=== PATIENT | male | born 1950 | race Caucasian/White ===

== ENCOUNTER 2019-07-15 08:02 | Outpatient (CLI) | payer MEDICARE ==
--- NOTE | 2019-07-15 10:27 | MRI ---
EXAM: MRI lumbar spine without contrast HISTORY: Back and right leg pain COMPARISON: None TECHNIQUE: Multiple planar multisequence MR images were obtained of the lumbar spine without contrast . FINDINGS: The vertebral bodies and intervertebral discs demonstrate normal height and alignment without fractur e or subluxation. Disc desiccation from L3/4 through L5/S1 is seen. A cyst is seen in the left kidney. The other prevertebral and paraspinal soft tissues are unremarkabl e. No marrow signal abnormality is present. The conus medullaris terminates normally at L1. T12/L1: No significant posterior bulge or protrusion. No posterior facet arthrosis. No central jah l stenosis. No neural foraminal stenosis L1/2: No significant posterior bulge or protrusion. No posterior facet arthrosis. No central canal stenosis. No neural foraminal stenosis L2/3: Minimal generalized concentric disc bulge. Mild to moderate bilateral posterior facet arthrosi s. No central canal stenosis. No neural foraminal stenosis L3/4: A small generalized concentric disc bulge is seen. Mild bilateral posterior facet arthrosis. Mild central canal stenosis. Mild to moderate bilateral neural foraminal stenosis L4/5: A small generalized concentric disc bulge is seen. Severe bilateral posterior facet arthrosis. Moderate central canal stenosis. Moderate bilateral neural foraminal stenosis, left greater than right. L5/S1: A small generalized concentric disc bulge is seen. Severe bilateral posterior facet arthrosis . No central canal stenosis. Severe left and moderate right neural foraminal stenosis IMPRESSION: Degenerative changes of the lumbar spine as above.
== END 2019-07-15 08:03 | disposition home or self-care (01) ==
LOC: TBSIIMAG 08:02
PROVIDERS: ATTEND Orthopaedic Surgery
DX: M48.061 Spinal stenosis, lumbar region without neurogenic claudication (principal); M47.816 Spondylosis without myelopathy or radiculopathy, lumbar region
CPT/HCPCS: 72148

== ENCOUNTER 2020-04-13 10:14 | Outpatient (CLI) | payer MEDICARE ==
--- NOTE | 2020-04-13 11:18 | MRI ---
MRI Lumbar Spine Noncontrast: HISTORY: Lumbar radiculopathy. COMPARISON: 07/15/2019. FINDINGS: Again noted is a circumscribed increased T2-weighted signal intensity structure in the midportion lef t kidney statistically likely representing a cyst. A smaller subcentimeter increased T2-weighted signal intensity focus is also again seen in the inferior pole left kidney but less apparent on the c urrent study due to motion. Conus medullaris is normal in morphology and terminates at the L1-2 level. There is mild heterogeneity seen within the bone marrow with endplate degenerative changes seen in th e lower lumbar spine. L1-2: Mild disc osteophyte complex resulting in slight effacement of the ventral aspect of the thecal sac. Neural foramina are patent. L2-3: Mild broad-based disc osteophyte complex similar to prior study. Facet hypertrophic changes are again noted. Mild central canal narrowing is present. Neural foramina are patent. Findings are similar to prior exam. L3-4: Mild disc osteophyte complex with facet hypertrophic changes. There is prominence of the epidur al fat posteriorly. Constellation of these findings results in moderate central canal narrowing with findings similar to prior exam. Mild bilateral neural foraminal narrowing is present greater on the left. L4-5: Trace grade 1 anterolisthesis of L4 on L5 likely due to to severe facet hypertrophic changes at this level. Fluid signal intensity is seen in the right facet joint which is similar to prior exam. There is a mild disc osteophyte complex and ligamentous thickening at this level. Findings resu lt in moderate central canal narrowing with prominent narrowing of the left lateral recess. Moderate left and mild to moderate right-sided neural foraminal narrowing is present. These findings are similar to the prior exam L5-S1: Broad-based disc osteophyte complex and facet hypertrophic changes with severe facet hypertrop hic changes present. Fluid signal intensity is seen in the facet joints at this level. The central spinal canal is patent, but there is severe left-sided neural foraminal narrowing with moderate right -sided neural foraminal narrowing. IMPRESSION: Overall stable multilevel degenerative changes in the lumbar spine with varying degrees of neural for aminal narrowing greater in the lower lumbar spine where there is severe left-sided neural foraminal narrowing at L5-S1.
== END 2020-04-13 10:15 | disposition home or self-care (01) ==
LOC: TBSIIMAG 10:14
PROVIDERS: ATTEND Neurological Surgery
DX: M47.26 Other spondylosis with radiculopathy, lumbar region (principal); M48.062 Spinal stenosis, lumbar region with neurogenic claudication; M48.07 Spinal stenosis, lumbosacral region
CPT/HCPCS: 72148

== ENCOUNTER 2020-06-07 07:45 | Outpatient (CLI) | payer MEDICARE, OTHER ==
[2020-06-07 16:27] LABS: Hemoglobin 16.9 g/dL (14.0-18.0); Mean Corpuscular HGB CONC 33.4 g/dL (32.0-36.0); Mean Corpuscular Hemoglobin 31.2 pg (27.0-31.0); Mean Corpuscular Volume 93.4 fL (78.0-98.0); Mean Platelet Volume 8.1 fL (7.4-10.4); Platelet Count 205 thou/uL (130-400); RBC Distribution Width 12.7 % (11.5-14.5); White Blood Cell (WBC) Count 6.9 thou/uL (4.8-10.8)
[2020-06-07 18:36] LABS: Anion Gap 13 mmol/L (10-20); BUN (Urea Nitrogen) 15 mg/dL (8.4-25.7); Calc. Creatinine Clearance 0 mL/min (70-130); Carbon Dioxide 20 mmol/L (23-31); Chloride 109 mmol/L (98-107); Estimated GFR-MDRD 72; Glucose 84 mg/dL (80-115); Potassium 4.3 mmol/L (3.5-5.1); Sodium 138 mmol/L (136-145)
[2020-06-08 12:45] LABS: SARS-CoV-2 MS2 Positive; SARS-CoV-2 N Gene Negative; SARS-CoV-2 S Gene Negative; SARS-CoV-2 by NAA Not Detected (NotDetected); SARS-CoV-2 orf1ab Negative
--- NOTE | 2020-06-11 15:28 | EKG ---
Test Reason : Blood Pressure : / mmHG Vent. Rate : 076 BPM Atrial Rate : 076 BPM P-R Int : 138 ms QRS Dur : 148 ms QT Int : 428 ms P-R-T Axes : 049 091 056 degrees QTc Int : 481 ms Sinus rhythm with occasional Premature ventricular complexes Right bundle branch block Abnormal ECG No previous ECGs available Confirmed by EARNESTINE RAMOS M.D. ([id number]) on 06/11/2020 3:27:42 PM Referred By: MONSE Confirmed By:EARNESTINE RAMOS M.D.
== END 2020-06-07 07:46 | disposition home or self-care (01) ==
LOC: LABBT 07:45
PROVIDERS: ATTEND Neurological Surgery
DX: Z01.818 Encounter for other preprocedural examination (principal); Z20.828 Contact with and (suspected) exposure to other viral communicable diseases; M54.16 Radiculopathy, lumbar region
CPT/HCPCS: 80048; 85027; 93005; U0003; 87635; 93010

== ENCOUNTER 2020-06-11 05:59 | Inpatient (IN) | payer MEDICARE ==
[2020-06-06 15:23] VITALS: BMI 33.9
[2020-06-11] MEDS ORDERED: Fentanyl 250 MCG/5 ML VIAL ONE (07:00)
[2020-06-11] MEDS ORDERED: Promethazine HCl 25 MG/ML VIAL IM PRN ×2 (08:40→10:00)
[2020-06-11] MEDS ORDERED: Promethazine HCl 25 MG/ML VIAL SLOW IVP PRN (08:40)
[2020-06-11] MEDS ORDERED: Morphine Sulfate 2 MG/ML SYRINGE SLOW IVP PRN (08:40)
[2020-06-11] MEDS ORDERED: Ondansetron HCl/PF 4 MG/2 ML Vial IVP PRN (08:40)
[2020-06-11] MEDS ORDERED: PACU-Morphine 4MG/ML VIAL SLOW IVP PRN (08:40)
[2020-06-11] MEDS ORDERED: HYDROmorphone 2 MG/ML VIAL SLOW IVP PRN (08:40)
[2020-06-11] MEDS ORDERED: Fentanyl 100 MCG/2 ML VIAL ONE (09:43)
--- NOTE | 2020-06-11 09:56 | OP ---
DATE OF PROCEDURE: 06/11/2020 SIMONIZER: Rudy. PROCEDURES PERFORMED: L4-L5 laminectomy; right L4-L5, laminectomy, facetectomy, and diskectomy; interbody arthrodesis; intervertebral biomechanical device; local morselized autograft; demineralized bone matrix; posterolateral arthrodesis; pedicle screw instrumentation L4-L5. DESCRIPTION OF PROCEDURE: The patient was brought to the operating room and intubated. He was rolled in a prone position on gel-filled chest rolls. An incision was made exposing L4 and L5 and the level was confirmed by x-ray. We performed complete L5 and inferior L4 laminectomy. He had extensive and dramatic bony overgrowth. He also had significant oozing throughout the case. We performed complete L5 and inferior L4 laminectomies completely decompressing the left and right lateral recesses. On the right, we performed complete facetectomy and right L4 foraminotomy. A complete decompression of right L4 and right L5 was achieved. The disk itself was incised and debrided and removed in multiple fragments and the bony endplates decorticated for the purpose of arthrodesis. An appropriately sized intervertebral biomechanical PEEK device was brought into the field filled with demineralized bone matrix and local morselized autograft, and tapped into place securely at L4-L5. Next, pedicle screws were placed at right L4 and right L5 using lateral fluoroscopic guidance and the position was confirmed by x-ray. The memo was secured between the screws, connected by nuts, which were final tightened. The wound was then extensively irrigated. MAC hemostasis was secured. A combination of demineralized bone matrix and local morselized autograft was laid over the lamina and posterolateral surfaces for the purpose of arthrodesis. Vancomycin powder was applied and the wound was closed in anatomic layers over a drain. Job ID: [id number]
[2020-06-11] MEDS ORDERED: traMADol HCl 50 MG TAB PO PRN ×2 (10:00)
[2020-06-11] MEDS ORDERED: diphenhydrAMINE 25 MG CAP PO PRN (10:00)
[2020-06-11] MEDS ORDERED: Promethazine HCl 12.5 MG SUPP PR PRN (10:00)
[2020-06-11] MEDS ORDERED: diphenhydrAMINE 50 MG/ML VIAL IVP PRN (10:00)
[2020-06-11] MEDS ORDERED: HYDROcodone/Acetaminophen 10/325 mg Tablet PO PRN (10:00)
[2020-06-11] MEDS ORDERED: tiZANidine HCl 4 MG TAB PO PRN (10:00)
[2020-06-11] MEDS ORDERED: Morphine 2 MG/ML VIAL SLOW IVP PRN (10:00)
[2020-06-11] MEDS ORDERED: Mag-Al 1200 mg/1200 mg/30 ML UDCUP PO PRN (10:00)
[2020-06-11] MEDS ORDERED: Ondansetron PF 4 MG/2 ML Vial IM PRN (10:00)
[2020-06-11] MEDS ORDERED: Milk Of Magnesia 30 ML UDCUP PO PRN (10:00)
[2020-06-11] MEDS ORDERED: Promethazine 25 MG TAB PO PRN (10:00)
[2020-06-11] MEDS ORDERED: Morphine 4 MG/ML VIAL SLOW IVP PRN (10:00)
[2020-06-11] MEDS ORDERED: Tamsulosin HCl 0.4 MG CAP ONE (10:19)
[2020-06-11] MEDS: Sodium Chloride 0.9% 1,000 ML IV SCH ×2 (11:51→23:32)
[2020-06-11] MEDS ORDERED: PROPOFOL 200 MG/20 ML VIAL ONE (11:57)
[2020-06-11] MEDS ORDERED: Glycopyrrolate 0.2 MG/ML 5 ML SYRINGE ONE (11:57)
[2020-06-11] MEDS ORDERED: PHENYLEPHRINE-NS 100 MCG/ML 10 ML SYRINGE ONE (11:57)
[2020-06-11] MEDS: HYDROcodone/Acetaminophen 10/325 mg Tablet PO PRN ×2 (11:57→23:42)
[2020-06-11] MEDS ORDERED: EPHEDRINE 25 MG/5 ML SYRINGE ONE (11:57)
[2020-06-11] MEDS ORDERED: Rocuronium Bromide 10 MG/ML (10ML VIAL) ONE (11:57)
[2020-06-11] MEDS ORDERED: Metoclopramide HCl 10 MG/2 ML VIAL ONE (11:57)
[2020-06-11] MEDS ORDERED: Dexamethasone 20 MG/5 ML VIAL ONE (11:57)
[2020-06-11] MEDS ORDERED: Lidocaine 1% PF 5 ML VIAL ONE (11:57)
[2020-06-11] MEDS ORDERED: Ondansetron PF 4 MG/2 ML Vial ONE (11:57)
[2020-06-11] MEDS ORDERED: Dextrose 50% Abboject 50 ML SYRINGE SLOW IVP PRN (13:19)
[2020-06-11] MEDS ORDERED: Dextrose 5% in Water 1,000 ML IV PRN (13:19)
--- NOTE | 2020-06-11 13:22 | PDOC.HOSPP ---
- Subjective Encounter Date: 06/11/20 Encounter Time: 12:30 Subjective: ambulated a bit post laminectomy surgery, has pain in his back no chest pain or sob is planning to order lunch - Objective Vital Signs & Weight: Vital Signs (12 hours) Temp Pulse Resp BP Pulse Ox 06/11/20 10:40 97.8 F 53 L 18 123/75 95 Weight Admit Weight 243 lb Weight 243 lb Additional Labs: Accuchecks 06/11/20 11:38 POC Glucose 155 H Hospitalist ROS - Medication Medications: Active Medications Generic Name Dose Route Start Last Admin Trade Name Freq PRN Reason Stop Dose Admin Hydrocodone Bitart/Acetaminophen 2 tab 06/11/20 10:00 06/11/20 11:57 Hydrocodone/Acetaminophen 10/325 Mg Tablet PO 2 tab Q4H PRN Administration PAIN (4-6) Sodium Chloride 1,000 mls @ 75 mls/hr 06/11/20 10:00 06/11/20 11:51 Normal Saline 0.9% IV 1,000 mls .[id number] ADILENE Administration - Exam General Appearance: awake alert Eye: PERRL, anicteric sclera ENT: no oropharyngeal lesions, dry oral mucosa Neck: supple, no JVD Heart: RRR, no murmur Respiratory: no wheezes, no rales Gastrointestinal: soft, non-tender, non-distended, normal bowel sounds Extremities: no cyanosis, no edema Neurological: cranial nerve grossly intact, no focal deficits Psychiatric: normal affect, A&O x 3 Hosp A/P (1) S/P lumbar laminectomy Code(s): Z98.890 - OTHER SPECIFIED POSTPROCEDURAL STATES Status: Acute (2) DM (diabetes mellitus) Code(s): E11.9 - TYPE 2 DIABETES MELLITUS WITHOUT COMPLICATIONS Status: Chronic Qualifiers: Diabetes mellitus type: type 2 Diabetes mellitus exterminator termite insulin use: without exterminator termite use (3) HLD (hyperlipidemia) Code(s): E78.5 - HYPERLIPIDEMIA, UNSPECIFIED Status: Chronic Qualifiers: Hyperlipidemia type: unspecified Qualified Code(s): E78.5 - Hyperlipidemia, unspecified (4) HTN (hypertension) Code(s): I10 - ESSENTIAL (PRIMARY) HYPERTENSION Status: Chronic Qualifiers: Hypertension type: essential hypertension Qualified Code(s): I10 - Essential (primary) hypertension (5) BPH (benign prostatic hyperplasia) Code(s): N40.0 - BENIGN PROSTATIC HYPERPLASIA WITHOUT LOWER URINRY TRACT SYMP Status: Chronic Qualifiers: Lower urinary tract symptom presence: symptoms absent Qualified Code(s): N40.0 - Benign prostatic hyperplasia without lower urinary tract symptoms - Plan post procedure recovering well continue current meds including metformin, coreg, lisinopril, flomax, zoloft may dc meclizine hemo/neurostable will f/u
[2020-06-11] MEDS: Meclizine HCl 25 MG TAB PO SCH ×2 (14:48→21:12)
[2020-06-11] MEDS: CEFAZOLIN 2 GM in Premix Bag 1 BAG IVPB SCH ×2 (14:48→21:12)
[2020-06-11] MEDS: metFORMIN 500 MG TAB PO SCH (18:27)
[2020-06-11] MEDS: HumaLOG 300 UNITS/3 ML VIAL SC PRN ×2 (18:27→21:12)
[2020-06-11] MEDS: Carvedilol 3.125 MG TAB PO SCH (18:28)
[2020-06-11] MEDS ORDERED: Carvedilol 6.25 MG TAB PO SCH (21:00)
[2020-06-11] MEDS: Atorvastatin Calcium 40 MG TAB PO SCH (21:12)
[2020-06-12] MEDS: CEFAZOLIN 2 GM in Premix Bag 1 BAG IVPB SCH ×3 (05:57→21:29)
[2020-06-12] MEDS: Tamsulosin HCl 0.4 MG CAP PO SCH (06:01)
[2020-06-12] MEDS: metFORMIN 500 MG TAB PO SCH ×2 (08:14→17:28)
[2020-06-12] MEDS: Carvedilol 3.125 MG TAB PO SCH ×2 (08:15→16:21)
[2020-06-12] MEDS: Lisinopril 20 MG TAB PO SCH (08:15)
[2020-06-12] MEDS: Meclizine HCl 25 MG TAB PO SCH ×3 (08:15→21:29)
[2020-06-12] MEDS: Sodium Chloride 0.9% 1,000 ML IV SCH (08:24)
--- NOTE | 2020-06-12 09:25 | PRG ---
DATE OF SERVICE: 06/12/2020 SUBJECTIVE: The patient is postoperative day #1 status post L4-L5 decompression and fusion. He was transitioned to the Med/Surg floor following the surgery, where his pain has been well controlled with p.o. medications, he is tolerating a regular diet, and he is voiding appropriately. He did have a SARAH drain placed intraoperatively, which has had significant output 240 mL yesterday and 155 overnight. This does seem to be trending down somewhat. OBJECTIVE: GENERAL: On exam, this morning, he is awake, alert, in no acute distress. MUSCULOSKELETAL: He has free active range of motion of all extremities. No focal motor weakness. There is some bright red blood in the SARAH drain. We will leave SARAH drain in place. We will continue to mobilize him with the assistance of PT. Depending on SARAH output and progress, he may be able to go home in the next day or two. Job ID: [id number]
--- NOTE | 2020-06-12 12:11 | PDOC.HOSPP ---
- Subjective Encounter Date: 06/12/20 Encounter Time: 09:30 Subjective: feels better is ambulating in hallway lower extemity prior to surgery is gone post op now - Objective Vital Signs & Weight: Vital Signs (12 hours) Temp Pulse Resp BP BP BP Pulse Ox 06/12/20 10:40 98.3 F 58 L 16 138/70 97 06/12/20 08:15 108/65 06/12/20 07:40 97.6 F 58 L 16 108/65 99 06/12/20 05:15 98.2 F 58 L 12 139/68 98 Weight Admit Weight 243 lb Weight 243 lb I&O: 06/11/20 06/12/20 06/13/20 06:59 06:59 06:59 Intake Total 2150 Output Total 1095 Balance 1055 Additional Labs: Accuchecks 06/12/20 06/12/20 06/11/20 10:41 05:18 21:14 POC Glucose 131 H 110 H 161 H 06/11/20 15:41 POC Glucose 250 H Hospitalist ROS - Medication Medications: Active Medications Generic Name Dose Route Start Last Admin Trade Name Freq PRN Reason Stop Dose Admin Hydrocodone Bitart/Acetaminophen 2 tab 06/11/20 10:00 06/11/20 23:42 Hydrocodone/Acetaminophen 10/325 Mg Tablet PO 2 tab Q4H PRN Administration PAIN (4-6) Atorvastatin Calcium 40 mg 06/11/20 21:00 06/11/20 21:12 Atorvastatin Calcium 40 Mg Tab PO 40 mg HS ADILENE Administration Carvedilol 3.125 mg 06/11/20 17:00 06/12/20 08:15 Carvedilol 3.125 Mg Tab PO Not Given BID-WM ADILENE Sodium Chloride 1,000 mls @ 75 mls/hr 06/11/20 10:00 06/12/20 08:24 Normal Saline 0.9% IV Not Given .[id number] ADILENE Cefazolin Sodium/Dextrose 2 gm 50 mls @ 100 mls/hr 06/11/20 14:00 06/12/20 05:57 / Device IVPB 50 mls Q8HR ADILENE Administration Insulin Human Lispro 0 units 06/11/20 13:19 06/11/20 21:12 Humalog 300 Units/3 Ml Vial SC 2 unit .MODERATE SLIDING SC PRN Administration Moderate Correctional Scale Lisinopril 20 mg 06/12/20 09:00 06/12/20 08:15 Lisinopril 20 Mg Tab PO Not Given DAILY ADILENE Meclizine HCl 25 mg 06/11/20 15:00 06/12/20 08:15 Meclizine Hcl 25 Mg Tab PO 25 mg TID ADILENE Administration Metformin HCl 1,000 mg 06/11/20 17:00 06/12/20 08:14 Metformin 500 Mg Tab PO 1,000 mg BID-WM ADILENE Administration Pantoprazole Sodium 40 mg 06/12/20 09:00 06/12/20 08:14 Pantoprazole 40 Mg Tab PO 40 mg DAILY ADILENE Administration Sertraline HCl 50 mg 06/12/20 09:00 06/12/20 08:14 Sertraline Hcl 25 Mg Tab PO 50 mg DAILY ADILENE Administration Sodium Chloride 10 ml 06/11/20 21:00 06/12/20 08:16 Flush - Normal Saline 10 Ml Syringe IVF Not Given Q12HR ADILENE Tamsulosin HCl 0.4 mg 06/12/20 06:00 06/12/20 06:01 Tamsulosin Hcl 0.4 Mg Cap PO Not Given 0600 ADILENE - Exam General Appearance: awake alert Eye: PERRL, anicteric sclera ENT: no oropharyngeal lesions, moist mucosa Neck: supple, no JVD Heart: RRR, no murmur Respiratory: no wheezes, no rales Gastrointestinal: soft, non-tender, non-distended, normal bowel sounds Extremities: no cyanosis, no edema Neurological: cranial nerve grossly intact, no focal deficits Psychiatric: A&O x 3 Hosp A/P (1) S/P lumbar laminectomy Code(s): Z98.890 - OTHER SPECIFIED POSTPROCEDURAL STATES Status: Acute (2) DM (diabetes mellitus) Code(s): E11.9 - TYPE 2 DIABETES MELLITUS WITHOUT COMPLICATIONS Status: Chronic Qualifiers: Diabetes mellitus type: type 2 Diabetes mellitus retirement insulin use: without retirement use (3) HLD (hyperlipidemia) Code(s): E78.5 - HYPERLIPIDEMIA, UNSPECIFIED Status: Chronic Qualifiers: Hyperlipidemia type: unspecified Qualified Code(s): E78.5 - Hyperlipidemia, unspecified (4) HTN (hypertension) Code(s): I10 - ESSENTIAL (PRIMARY) HYPERTENSION Status: Chronic Qualifiers: Hypertension type: essential hypertension Qualified Code(s): I10 - Essential (primary) hypertension (5) BPH (benign prostatic hyperplasia) Code(s): N40.0 - BENIGN PROSTATIC HYPERPLASIA WITHOUT LOWER URINRY TRACT SYMP Status: Chronic Qualifiers: Lower urinary tract symptom presence: symptoms absent Qualified Code(s): N 40.0 - Benign prostatic hyperplasia without lower urinary tract symptoms - Plan s/p L4-5 lumbar laminectomy is recovering well continue current meds including metformin, coreg, lisinopril, flomax, zoloft may dc meclizine hemo/neurostable will f/u has increased output from hunter drain, likely dc plan in am
--- NOTE | 2020-06-12 15:38 | PRG ---
DATE OF SERVICE: 06/12/2020 SUBJECTIVE: The patient is doing quite well. He has significant improvement in his leg pain. He had significant during surgery and his drain output remains to high to safely remove the drain. I discussed this with him and anticipate discharge tomorrow. Job ID: [id number]
[2020-06-12] MEDS: HYDROcodone/Acetaminophen 10/325 mg Tablet PO PRN ×2 (17:28→21:35)
[2020-06-12] MEDS: Atorvastatin Calcium 40 MG TAB PO SCH (21:29)
[2020-06-13] MEDS: Sodium Chloride 0.9% 1,000 ML IV SCH (01:44)
[2020-06-13] MEDS: CEFAZOLIN 2 GM in Premix Bag 1 BAG IVPB SCH (05:39)
[2020-06-13] MEDS: Tamsulosin HCl 0.4 MG CAP PO SCH (05:39)
[2020-06-13] MEDS: HYDROcodone/Acetaminophen 10/325 mg Tablet PO PRN ×2 (06:19→11:24)
[2020-06-13] MEDS: Carvedilol 3.125 MG TAB PO SCH (09:54)
[2020-06-13] MEDS: metFORMIN 500 MG TAB PO SCH (09:54)
[2020-06-13] MEDS: Lisinopril 20 MG TAB PO SCH (09:55)
[2020-06-13] MEDS: Meclizine HCl 25 MG TAB PO SCH (09:55)
[2020-06-13 15:57] VITALS: BP 114/58; TEMP 98.7
--- NOTE | 2020-06-14 05:55 | DIS ---
DATE OF ADMISSION: 06/11/2020 DATE OF DISCHARGE: 06/13/2020 The patient is a 69-year-old male, recently evaluated in our office for back and leg pain. He was found to have L4-L5 degenerative changes and stenosis. He underwent L4-L5 decompression and fusion on 06/11/2020. Following the surgery, he was transitioned to the Med/Surg floor, where his pain has been well controlled with p.o. medications, he has been tolerating a regular diet, and he has been voiding appropriately. He did have a SARAH drain placed intraoperatively and its output trended down over postoperative day #1 and #2. This was removed on postoperative day #2. Exam on postoperative day #2, awake, alert, in no acute distress. Free active range of motion of all extremities. No focal motor weakness. Incision is clean, dry, and intact. There is small amount of serosanguinous fluid in the SARAH bulb. We will plan to dismiss to home. I have discussed home care precautions and will follow up with the patient in 2 weeks. He has been provided with scripts for [place], Zanaflex, and Keflex. BUSINESS ANALYST PROJECT MANAGER Jair checked prior to discharge. Job ID: [id number]
== END 2020-06-13 16:00 | disposition home or self-care (01) | DRG 455 ==
LOC: SDC 05:59 → SURG A 09:40 → OBSVTOIN 09:40
PROVIDERS: ADMIT Neurological Surgery; ATTEND Neurological Surgery
PROC: 0SG00AJ Fusion of Lumbar Vertebral Joint with Interbody Fusion Device, Posterior Approach, Anterior Column, Open Approach (ICD-10-PCS; principal; 2020-06-11)
PROC: 0SG0071 Fusion of Lumbar Vertebral Joint with Autologous Tissue Substitute, Posterior Approach, Posterior Column, Open Approach (ICD-10-PCS; 2020-06-11)
PROC: 0SB20ZZ Excision of Lumbar Vertebral Disc, Open Approach (ICD-10-PCS; 2020-06-11)
PROC: 01NB0ZZ Release Lumbar Nerve, Open Approach (ICD-10-PCS; 2020-06-11)
DX: M48.061 Spinal stenosis, lumbar region without neurogenic claudication (principal); E78.5 Hyperlipidemia, unspecified; E11.9 Type 2 diabetes mellitus without complications; I10 Essential (primary) hypertension; N40.0 Benign prostatic hyperplasia without lower urinary tract symptoms
CPT/HCPCS: 36416; 76000; 94660; 96361; 96365; 96366; C1713; C1768; G0378; J0690; J1100; J2405; J2704; J2765; J3010; J3370; J3490

== ENCOUNTER 2020-06-28 09:00 | Outpatient (CLI) | payer MEDICARE ==
--- NOTE | 2020-06-28 11:03 | RAD ---
LUMBAR SPINE 2 VIEWS: Date: 06/28/2020 HISTORY: Lumbar radiculopathy. COMPARISON: 08/03/2019. FINDINGS: Postoperative fusion changes with pedicle screws at L4-L5 with intradiscal prosthesis with mild Grade I anterolisthesis of L4 on L5. IMPRESSION: Postop laminectomy and pedicle screw placement and intradiscal prosthesis changes at L4-L5 with mild Grade I anterolisthesis. POS: [facility]
== END 2020-06-28 09:01 | disposition home or self-care (01) ==
LOC: TBSIIMAG 09:00
PROVIDERS: ATTEND Neurological Surgery
DX: M54.16 Radiculopathy, lumbar region (principal); M43.16 Spondylolisthesis, lumbar region; Z98.890 Other specified postprocedural states
CPT/HCPCS: 72100

== ENCOUNTER 2020-08-14 09:35 | Outpatient (CLI) | payer MEDICARE ==
--- NOTE | 2020-08-14 10:03 | RAD ---
LUMBAR SPINE SERIES 2 VIEWS: Date: 08/14/2020 HISTORY: Low back pain, history of surgery. Patient injured back this past weekend. COMPARISON: 06/28/2020 exam. FINDINGS: The vertebral bodies are normal in height. Degenerative osteophytic change is seen along the course o f the spine. There are right unilateral pedicle screws at L4-5. Markers of disc implants are within t he confines of the disc level. Pedicles are intact. IMPRESSION: Stable postop and arthritic changes of the spine. POS: [facility]
== END 2020-08-14 09:36 | disposition home or self-care (01) ==
LOC: TBSIIMAG 09:35
PROVIDERS: ATTEND Neurological Surgery
DX: M54.5 Low back pain (principal); M46.96 Unspecified inflammatory spondylopathy, lumbar region; Z98.890 Other specified postprocedural states
CPT/HCPCS: 72100

== ENCOUNTER 2021-08-03 23:39 | Observation (INO) | payer MEDICARE ==
[2021-08-04 00:33] LABS: #Basophils 0.1 thou/uL (0.0-0.2); #Eosinphils 0.1 thou/uL (0.0-0.7); #Lymphocytes 2.6 thou/uL (1.20-3.40); #Monocytes 0.7 thou/uL (0.11-0.59); #Neutrophils 5.2 thou/uL (1.40-6.50); %Basophils 1.1 % (0.0-1.0); %Eosinophils 1.7 % (0.0-10.0); %Lymphocytes 30.1 % (21.0-51.0); %Monocytes 8.4 % (0.0-10.0); %Neutrophils 58.7 % (42.0-75.0); Mean Corpuscular HGB CONC 34.5 g/dL (32.0-36.0); Mean Corpuscular Hemoglobin 32.2 pg (27.0-31.0); Mean Corpuscular Volume 93.3 fL (78.0-98.0); Mean Platelet Volume 7.6 fL (7.4-10.4); Platelet Count 176 thou/uL (130-400); RBC Distribution Width 12.5 % (11.5-14.5); Red Blood Cell (RBC) Count 5.28 mill/uL (4.70-6.10); White Blood Cell (WBC) Count 8.8 thou/uL (4.8-10.8)
[2021-08-04 00:40] LABS: Acetaminophen Less than 6.0 mcg/mL (10.0-30.0); Alcohol Less than 10 mg/dL (Less than 10); Salicylate Less than 8.0 mg/dL (15.0-30.0)
[2021-08-04 00:41] LABS: ALT (SGPT) 22 U/L (8-55); AST (SGOT) 19 U/L (5-34); Albumin 3.9 g/dL (3.4-4.8); Alkaline Phosphatase 84 U/L (40-110); Anion Gap 13 mmol/L (10-20); BUN (Urea Nitrogen) 16 mg/dL (8.4-25.7); Bilirubin, Total 0.5 mg/dL (0.2-1.2); Calc. Creatinine Clearance 0 mL/min (70-130); Calcium 9.5 mg/dL (7.8-10.44); Carbon Dioxide 22 mmol/L (23-31); Chloride 109 mmol/L (98-107); Globulin 2.4 g/dL (2.4-3.5); Glucose 103 mg/dL (80-115); Potassium 3.6 mmol/L (3.5-5.1); Protein, Total 6.3 g/dL (5.8-8.1); Sodium 140 mmol/L (136-145)
[2021-08-04 00:42] LABS: INR-International Normal Ratio 0.9; Prothrombin Time 12.6 sec (12.0-14.7)
[2021-08-04 00:43] LABS: PTT 33.7 sec (22.9-36.1)
[2021-08-04] MEDS ORDERED: Aspirin Chewable 81 MG TAB ONE (02:55)
[2021-08-04 03:17] LABS: Bacteria/HPF None Seen HPF (None Seen); Bilirubin Negative (Negative); Blood, Urine Negative (Negative); Clarity Clear (Clear); Glucose, Urine (Dipstick) Normal (Negative); Ketone, Urine Negative (Negative); Leukocyte 25 Leu/uL (Negative); Nitrite Negative (Negative); Protein, Urine (Dipstick) Negative (Neg-Trace); RBC/HPF 0-3 HPF (0-3); Specific Gravity, Urine 1.044 (1.002-1.036); Squamous Epithelial 0-3 HPF (0-3); Urobilinogen Normal mg/dL (Less than 2); pH, Urine 6.5 (5.0-9.0)
[2021-08-04 03:26] LABS: Amphetamine Not Detected (NotDetected); Barbiturates Screen Not Detected (NotDetected); Benzodiazepine Screen Detected (NotDetected); Cocaine Metabolite Screen Not Detected (NotDetected); Methadone Not Detected (NotDetected); Methamphetamine Not Detected (NotDetected); Opiate Screen Not Detected (NotDetected); Oxycodone Screen Not Detected (NotDetected); Phencyclidine (PCP) Not Detected (NotDetected); THC/Cannabinoid Screen Not Detected (NotDetected); Tricyclic Screen Not Detected (NotDetected)
[2021-08-04] MEDS ORDERED: hydrALAZINE 20 MG/ML VIAL SLOW IVP PRN (05:36)
[2021-08-04] MEDS ORDERED: Labetalol HCl 100 MG/20 ML VIAL SLOW IVP PRN (05:36)
[2021-08-04 05:54] VITALS: BMI 32.7
[2021-08-04] MEDS ORDERED: cefTRIAXone\\ROCEPHIN 1 GM in Sodium Chloride 0.9% 100 ML IVPB SCH ×2 (06:00→08:00)
[2021-08-04] MEDS ORDERED: Enoxaparin Sodium 40 MG/0.4 ML SYRINGE SC SCH (09:00)
[2021-08-04] MEDS ORDERED: Iopamidol-370 76% 500 ML 1 ML ONE (09:58)
[2021-08-04] MEDS ORDERED: FLU VACC QS2021-22(65YR UP)/PF 240 MCG/0.7 ML SYRINGE IM ONE (10:45)
[2021-08-04 14:29] LABS: SARS-CoV-2 PCR by NAA Not Detected (NotDetected)
[2021-08-04 17:28] VITALS: BP 107/57; TEMP 97.6
== END 2021-08-04 19:33 | disposition home or self-care (01) ==
LOC: ERS 23:39 → 2SW 08-04 03:12
PROVIDERS: ADMIT Internal Medicine; ATTEND Internal Medicine
DX: R42 Dizziness and giddiness (principal); R47.81 Slurred speech; I10 Essential (primary) hypertension; E78.5 Hyperlipidemia, unspecified; E11.9 Type 2 diabetes mellitus without complications; G89.29 Other chronic pain; M54.9 Dorsalgia, unspecified; G47.33 Obstructive sleep apnea (adult) (pediatric); Z20.822 Contact with and (suspected) exposure to COVID-19; Z79.84 Long term (current) use of oral hypoglycemic drugs; Z79.899 Other long term (current) drug therapy; Z96.652 Presence of left artificial knee joint; Z90.49 Acquired absence of other specified parts of digestive tract; Z98.890 Other specified postprocedural states
CPT/HCPCS: 70450; 70496; 70498; 70551; 80053; 80061; 80306; 80307; 83036; 85025; 85610; 85730; 87086; 93005; U0003; U0005; 36415; 81003; 81015; J0696; J1650; J3490; Q9967

== ENCOUNTER 2022-05-20 15:07 | Inpatient (IN) | payer MEDICARE, OTHER ==
[~2022-05-20 15:07] MED LIST: Iopamidol-370 76% 500 ML 1 ML ONE
[2022-05-20 15:46] LABS: #Basophils 0.1 thou/uL (0.0-0.2); #Eosinphils 0.1 thou/uL (0.0-0.7); #Monocytes 0.7 thou/uL (0.11-0.59); #Neutrophils 6.8 thou/uL (1.40-6.50); %Basophils 0.7 % (0.0-1.0); %Eosinophils 0.8 % (0.0-10.0); %Lymphocytes 11.3 % (21.0-51.0); %Monocytes 7.8 % (0.0-10.0); %Neutrophils 79.3 % (42.0-75.0); Hemoglobin 16.4 g/dL (14.0-18.0); Mean Corpuscular HGB CONC 34.8 g/dL (32.0-36.0); Mean Corpuscular Hemoglobin 32.4 pg (27.0-31.0); Mean Corpuscular Volume 93.3 fL (78.0-98.0); Mean Platelet Volume 6.9 fL (7.4-10.4); Platelet Count 157 thou/uL (130-400); RBC Distribution Width 12.8 % (11.5-14.5); Red Blood Cell (RBC) Count 5.06 mill/uL (4.70-6.10); White Blood Cell (WBC) Count 8.6 thou/uL (4.8-10.8)
[2022-05-20] MEDS ORDERED: Ondansetron ODT 4 MG TAB ONE ×2 (15:59→16:00)
[2022-05-20] MEDS ORDERED: Morphine 4 MG/ML VIAL ONE (15:59)
[2022-05-20] MEDS ORDERED: Ondansetron PF 4 MG/2 ML Vial ONE (16:00)
[2022-05-20 16:14] LABS: ALT (SGPT) 16 U/L (8-55); AST (SGOT) 15 U/L (5-34); Albumin 3.8 g/dL (3.4-4.8); Alkaline Phosphatase 78 U/L (40-110); Anion Gap 13 mmol/L (10-20); BUN (Urea Nitrogen) 13 mg/dL (8.4-25.7); Bilirubin, Total 1.4 mg/dL (0.2-1.2); Calc. Creatinine Clearance 0 mL/min (70-130); Calcium 9.1 mg/dL (7.8-10.44); Carbon Dioxide 22 mmol/L (23-31); Chloride 105 mmol/L (98-107); Estimated GFR 74; Globulin 2.8 g/dL (2.4-3.5); Glucose 103 mg/dL (80-115); Lipase 10 U/L (8-78); Potassium 3.9 mmol/L (3.5-5.1); Protein, Total 6.6 g/dL (5.8-8.1); Sodium 136 mmol/L (136-145)
[2022-05-20] MEDS ORDERED: Aspirin 325 MG TAB ONE (19:03)
[2022-05-20 19:31] LABS: SARS-CoV-2 NAA Rapid Test Not Detected (NotDetected)
[2022-05-20 20:50] VITALS: BMI 35.3
[2022-05-20 20:58] LABS: Troponin I 0.018 ng/mL (< 0.028)
[2022-05-20] MEDS ORDERED: Acetaminophen 325 MG TAB PO PRN (21:56)
[2022-05-20] MEDS ORDERED: Ondansetron PF 4 MG/2 ML Vial IVP PRN (21:56)
[2022-05-20] MEDS ORDERED: Ondansetron ODT 4 MG TAB PO PRN (21:56)
[2022-05-20] MEDS ORDERED: Acetaminophen 650 MG Suppository PR PRN (21:56)
[2022-05-20] MEDS ORDERED: Furosemide 20 MG/2 ML VIAL SLOW IVP SCH (22:15)
[2022-05-20 23:17] LABS: Troponin I 0.016 ng/mL (< 0.028)
[2022-05-20 23:55] LABS: Anion Gap 13 mmol/L (10-20); BUN (Urea Nitrogen) 14 mg/dL (8.4-25.7); Calc. Creatinine Clearance 100 mL/min (70-130); Calcium 8.6 mg/dL (7.8-10.44); Carbon Dioxide 21 mmol/L (23-31); Chloride 106 mmol/L (98-107); Estimated GFR 71; Glucose 153 mg/dL (80-115); Magnesium 1.9 mg/dL (1.6-2.6); Potassium 3.4 mmol/L (3.5-5.1); Sodium 137 mmol/L (136-145)
[2022-05-21] MEDS ORDERED: Electrolyte Replacement Protocol 1 EACH FS PRN (00:15)
[2022-05-21] MEDS ORDERED: Potassium Chloride 20 MEQ TAB PO SCH (00:30)
[2022-05-21] MEDS ORDERED: HumaLOG 300 UNITS/3 ML VIAL SC PRN ×2 (01:16)
[2022-05-21] MEDS ORDERED: Dextrose 50% Abboject 50 ML SYRINGE SLOW IVP PRN (01:16)
[2022-05-21] MEDS ORDERED: Dextrose 5% in Water 1,000 ML IV PRN (01:16)
[2022-05-21 06:13] LABS: #Basophils 0.1 thou/uL (0.0-0.2); #Eosinphils 0.1 thou/uL (0.0-0.7); #Lymphocytes 1.4 thou/uL (1.20-3.40); #Monocytes 0.9 thou/uL (0.11-0.59); #Neutrophils 5.5 thou/uL (1.40-6.50); %Basophils 0.9 % (0.0-1.0); %Eosinophils 1.9 % (0.0-10.0); %Lymphocytes 17.3 % (21.0-51.0); %Monocytes 11.2 % (0.0-10.0); %Neutrophils 68.7 % (42.0-75.0); Hemoglobin 15.8 g/dL (14.0-18.0); Mean Corpuscular HGB CONC 34.5 g/dL (32.0-36.0); Mean Corpuscular Hemoglobin 32.6 pg (27.0-31.0); Mean Corpuscular Volume 94.7 fL (78.0-98.0); Mean Platelet Volume 7.4 fL (7.4-10.4); Platelet Count 157 thou/uL (130-400); Red Blood Cell (RBC) Count 4.84 mill/uL (4.70-6.10)
[2022-05-21] MEDS ORDERED: Magnesium 2 GM/50 ML(in water) 2 GM in Premix Bag 1 BAG IVPB SCH ×2 (06:30→07:00)
[2022-05-21 06:32] LABS: Anion Gap 15 mmol/L (10-20); BUN (Urea Nitrogen) 14 mg/dL (8.4-25.7); Calc. Creatinine Clearance 107 mL/min (70-130); Calcium 8.8 mg/dL (7.8-10.44); Carbon Dioxide 21 mmol/L (23-31); Chloride 104 mmol/L (98-107); Estimated GFR 77; Glucose 110 mg/dL (80-115); Potassium 3.8 mmol/L (3.5-5.1); Sodium 136 mmol/L (136-145)
[2022-05-21] MEDS ORDERED: Regadenoson 0.4 MG/5 ML SYRINGE ONE (08:41)
[2022-05-21] MEDS ORDERED: Enoxaparin Sodium 40 MG/0.4 ML SYRINGE SC SCH (09:00)
[2022-05-21] MEDS: Aspirin Chewable 81 MG TAB PO SCH (11:23)
[2022-05-21] MEDS ORDERED: Iopamidol 370 76% 100 ML VIAL ONE (14:11)
[2022-05-21] MEDS ORDERED: Communication Order-Pharmacy FS SCH (17:30)
[2022-05-21] MEDS: Amlodipine 5 MG TAB PO SCH (20:46)
[2022-05-21] MEDS: Lisinopril 20 MG TAB PO SCH (20:47)
[2022-05-21] MEDS ORDERED: Atorvastatin Calcium 40 MG TAB PO SCH (21:00)
[2022-05-21] MEDS: Nitroglycerin 0.4 MG TAB (25 Tab Bottle) SL PRN ×2 (21:01→21:09)
[2022-05-22 05:48] LABS: Magnesium 2.1 mg/dL (1.6-2.6)
[2022-05-22] MEDS ORDERED: Sodium Chloride 0.9% 1,000 ML IV SCH ×2 (06:00→08:01)
[2022-05-22] MEDS ORDERED: Nitroglycerin 100MG/250ML BOT 0 ML ONE (06:39)
[2022-05-22] MEDS ORDERED: Fentanyl 100 MCG/2 ML VIAL ONE (06:39)
[2022-05-22] MEDS ORDERED: Heparin 10,000 UNITS/ 10 ML VIAL ONE (06:39)
[2022-05-22] MEDS ORDERED: Midazolam HCl 2 mg/2 ml Vial ONE (06:39)
[2022-05-22] MEDS ORDERED: Lidocaine 1% 50ML VIAL ONE (06:39)
[2022-05-22] MEDS: Aspirin Chewable 81 MG TAB PO SCH (06:40)
[2022-05-22] MEDS ORDERED: Protamine Sulfate 50 MG/5 ML VIAL ONE (07:45)
[2022-05-22] MEDS ORDERED: Nitroglycerin 0.4 MG TAB (25 Tab Bottle) SL PRN (08:00)
[2022-05-22] MEDS ORDERED: Acetaminophen/Codeine 30-300mg Tablet PO PRN ×2 (08:00)
[2022-05-22] MEDS ORDERED: Sodium Chloride 0.9% 200 ML IV PRN (08:00)
[2022-05-22] MEDS ORDERED: Atorvastatin Calcium 40 MG TAB PO SCH (21:00)
[2022-05-22 22:04] VITALS: BP 143/70; TEMP 98.1
[2022-05-22] MEDS: Lisinopril 20 MG TAB PO SCH (22:23)
[2022-05-22] MEDS: Amlodipine 5 MG TAB PO SCH (22:23)
== END 2022-05-22 23:02 | disposition home or self-care (01) | DRG 287 ==
LOC: ERS 15:07 → 2SW 19:47 → OBSVTOIN 05-22 13:53
PROVIDERS: ADMIT Family Medicine; ATTEND Family Medicine
PROC: 4A023N7 Measurement of Cardiac Sampling and Pressure, Left Heart, Percutaneous Approach (ICD-10-PCS; principal; 2022-05-22)
PROC: B2151ZZ Fluoroscopy of Left Heart using Low Osmolar Contrast (ICD-10-PCS; 2022-05-22)
DX: R07.9 Chest pain, unspecified (principal); Z20.822 Contact with and (suspected) exposure to COVID-19; E11.9 Type 2 diabetes mellitus without complications; G47.33 Obstructive sleep apnea (adult) (pediatric); Z96.652 Presence of left artificial knee joint; E66.01 Morbid (severe) obesity due to excess calories; I25.10 Atherosclerotic heart disease of native coronary artery without angina pectoris; E78.00 Pure hypercholesterolemia, unspecified; I11.0 Hypertensive heart disease with heart failure; F32.A Depression, unspecified; Z68.35 Body mass index [BMI] 35.0-35.9, adult; Z79.899 Other long term (current) drug therapy; Z90.49 Acquired absence of other specified parts of digestive tract
CPT/HCPCS: 36415; 36416; 71045; 71275; 74177; 78452; 80048; 80053; 80061; 83605; 83690; 83735; 83880; 84484; 85025; 85347; 93005; 93010; 93017; 93458; 94640; 94660; 94760; 96372; 96375; 99152; A9500; C1769; G0378; J1644; J1650; J1815; J1940; J2250; J2270; J2405; J2720; J2785; J3010; J3475; J3490; J7050; J7620; Q0162; Q9967

== ENCOUNTER 2023-03-02 14:11 | Emergency (ER) | payer MEDICARE, OTHER ==
[2023-03-02 15:17] LABS: #Basophils 0.1 thou/uL (0.0-0.2); #Eosinphils 0.1 thou/uL (0.0-0.7); #Monocytes 0.7 thou/uL (0.11-0.59); #Neutrophils 6.2 thou/uL (1.40-6.50); %Basophils 1.1 % (0.0-1.0); %Eosinophils 0.9 % (0.0-10.0); %Lymphocytes 21.5 % (21.0-51.0); %Monocytes 7.4 % (0.0-10.0); %Neutrophils 68.7 % (42.0-75.0); Hemoglobin 16.3 g/dL (14.0-18.0); Mean Corpuscular Hemoglobin 30.8 pg (27.0-31.0); Mean Corpuscular Volume 90.5 fl (78.0-98.0); Mean Platelet Volume 9.7 fL (7.4-10.4); Platelet Count 177 10x3/uL (130-400); Red Blood Cell (RBC) Count 5.29 mill/uL (4.70-6.10); White Blood Cell (WBC) Count 9.1 10x3/uL (4.8-10.8)
[2023-03-02 15:44] LABS: ALT (SGPT) 13 U/L (8-55); AST (SGOT) 11 U/L (5-34); Albumin 3.7 g/dL (3.4-4.8); Alkaline Phosphatase 73 U/L (40-110); Anion Gap 12 mmol/L (10-20); BUN (Urea Nitrogen) 16 mg/dL (8.4-25.7); Bilirubin, Total 0.6 mg/dL (0.2-1.2); Calc. Creatinine Clearance 0 mL/min (70-130); Calcium 9.4 mg/dL (7.8-10.44); Carbon Dioxide 23 mmol/L (23-31); Chloride 107 mmol/L (98-107); Estimated GFR 59; Globulin 2.6 g/dL (2.4-3.5); Glucose 125 mg/dL (83-110); Potassium 3.9 mmol/L (3.5-5.1); Protein, Total 6.3 g/dL (5.8-8.1); Sodium 138 mmol/L (136-145)
[2023-03-02] MEDS ORDERED: Ketorolac Tromethamine 30 MG/ML VIAL ONE (18:17)
[2023-03-02 19:37] LABS: Bacteria/HPF None Seen HPF (None Seen); Bilirubin Negative (Negative); Blood, Urine Negative (Negative); CAUTI Indications for Culture Urological Procedure; Clarity Clear (Clear); Glucose, Urine (Dipstick) Normal (Negative); Ketone, Urine Negative (Negative); Leukocyte Negative Leu/uL (Negative); Mucous/LPF Rare LPF (<2+); Nitrite Negative (Negative); Protein, Urine (Dipstick) Negative (Neg-Trace); RBC/HPF 0-3 HPF (0-3); Specific Gravity, Urine 1.016 (1.002-1.036); Squamous Epithelial None Seen HPF (0-3); Urobilinogen Normal mg/dL (Less than 2)
[2023-03-02 19:40] LABS: Urine Culture Reflex Yes Yes
== END 2023-03-02 18:42 | disposition home or self-care (01) ==
LOC: ERS 14:11
DX: S39.012A Strain of muscle, fascia and tendon of lower back, initial encounter (principal); E11.9 Type 2 diabetes mellitus without complications; I10 Essential (primary) hypertension; E78.2 Mixed hyperlipidemia; X50.0XXA Overexertion from strenuous movement or load, initial encounter
CPT/HCPCS: 36415; 74176; 80053; 81001; 85025; 87077; 87086; 96372; J1885

== ENCOUNTER 2023-04-14 09:35 | Outpatient (CLI) | payer OTHER | END 2023-04-14 09:36 | disposition home or self-care (01) | LOC: BICMRI 09:35 | PROVIDERS: ATTEND Family Medicine | DX: R22.42 Localized swelling, mass and lump, left lower limb (principal); D17.9 Benign lipomatous neoplasm, unspecified | CPT/HCPCS: 82565 ==

== ENCOUNTER 2023-08-07 15:22 | Outpatient (CLI) | payer OTHER ==
[2023-08-07 16:33] LABS: #Basophils 0.1 10x3/uL (0.0-0.2); #Eosinphils 0.1 10x3/uL (0.0-0.5); #Monocytes 0.7 10x3/uL (0.0-1.1); #Neutrophils 5.2 10x3/uL (1.5-8.4); %Basophils 0.8 % (0.0-2.0); %Eosinophils 1.1 % (0.0-6.0); %Lymphocytes 26.8 % (18.0-47.0); %Monocytes 8.6 % (0.0-10.0); %Neutrophils 61.8 % (40.0-75.0); Hematocrit 47.6 % (38.8-50.0); Mean Corpuscular HGB CONC 33.6 g/dL (32.0-36.0); Mean Corpuscular Hemoglobin 29.7 pg (27.0-33.0); Mean Corpuscular Volume 88.5 fl (81.2-95.1); Mean Platelet Volume 9.8 fl (7.4-10.4); Platelet Count 216 10x3/uL (150-450); RBC Distribution Width 13.4 % (11.5-14.5); Red Blood Cell (RBC) Count 5.38 10x6/uL (4.32-5.72); White Blood Cell (WBC) Count 8.5 10x3/uL (3.5-10.5)
[2023-08-07 16:54] LABS: ALT (SGPT) 20 U/L (8-55); AST (SGOT) 16 U/L (5-34); Alkaline Phosphatase 112 U/L (40-110); Anion Gap 15 mmol/L (10-20); BUN (Urea Nitrogen) 12 mg/dL (8.4-25.7); Bilirubin, Total 0.6 mg/dL (0.2-1.2); Calc. Creatinine Clearance 0 mL/min (70-130); Calcium 9.2 mg/dL (7.8-10.44); Carbon Dioxide 22 mmol/L (23-31); Chloride 108 mmol/L (98-107); Estimated GFR 69; Globulin 2.3 g/dL (2.4-3.5); Glucose 121 mg/dL (83-110); Potassium 3.9 mmol/L (3.5-5.1); Protein, Total 6.3 g/dL (5.8-8.1); Sodium 141 mmol/L (136-145)
== END 2023-08-07 15:23 | disposition home or self-care (01) ==
LOC: LABBT 15:22
PROVIDERS: ATTEND Surgery
DX: Z01.818 Encounter for other preprocedural examination (principal); D17.9 Benign lipomatous neoplasm, unspecified
CPT/HCPCS: 80053; 85025; 93005; 93010

== ENCOUNTER 2023-08-10 06:57 | Day surgery (SDC) | payer OTHER ==
[2023-08-07 15:46] VITALS: BMI 34.2
[2023-08-10] MEDS ORDERED: Sodium Chloride 0.9% 100 ML ONE (07:35)
[2023-08-10] MEDS ORDERED: CEFAZOLIN 2 GM VIAL ONE (07:35)
[2023-08-10] MEDS ORDERED: Lidocaine 1% MPF 2 ML VIAL ONE (07:35)
[2023-08-10] MEDS ORDERED: Bupivacaine 0.25% HCL 30 ML VIAL ONE (08:20)
[2023-08-10] MEDS ORDERED: EPINEPHrine 1 MG/ML VIAL ONE (08:20)
[2023-08-10] MEDS ORDERED: Lidocaine 1% PF 5 ML VIAL ONE ×2 (08:44→08:53)
[2023-08-10] MEDS ORDERED: Dexamethasone 4 mg/ml Vial ONE (08:44)
[2023-08-10] MEDS ORDERED: Rocuronium Bromide 10 MG/ML (10ML VIAL) ONE ×2 (08:44→08:53)
[2023-08-10] MEDS ORDERED: PROPOFOL 20 ML ONE (08:44)
[2023-08-10] MEDS ORDERED: fentaNYL PF 100 MCG/2 ML SYRINGE ONE (08:44)
[2023-08-10] MEDS ORDERED: Ondansetron PF 4 MG/2 ML Vial ONE ×2 (08:44→08:53)
[2023-08-10] MEDS ORDERED: PHENYLEPHRINE-NS 100 MCG/ML 10 ML SYRINGE ONE ×2 (08:53→09:19)
[2023-08-10] MEDS ORDERED: Succinylcholine 200 MG/10 ml SYRINGE FS ONE ×2 (08:53→08:59)
[2023-08-10] MEDS ORDERED: Dexamethasone 20 MG/5 ML VIAL ONE (08:53)
[2023-08-10] MEDS ORDERED: PROPOFOL 200 MG/20 ML VIAL ONE (08:53)
[2023-08-10] MEDS ORDERED: SUGAMMADEX SODIUM 200 MG/2 ML VIAL ONE (08:58)
[2023-08-10] MEDS ORDERED: fentaNYL 50 mcg/mL 1 mL Vial ONE ×3 (10:23→10:49)
[2023-08-10] MEDS ORDERED: Ketorolac Tromethamine 30 MG/ML VIAL ONE (10:35)
[2023-08-10] MEDS ORDERED: HYDROmorphone 0.5 MG/0.5 ML SYRINGE ONE (11:11)
[2023-08-10] MEDS ORDERED: HYDROcodone/Acetaminophen 5/325 mg Tablet ONE (12:36)
== END 2023-08-10 14:05 | disposition home or self-care (01) ==
LOC: SDC 06:57
PROVIDERS: ATTEND Surgery
PROC: 0JBP0ZZ Excision of Left Lower Leg Subcutaneous Tissue and Fascia, Open Approach (ICD-10-PCS; principal; 2023-08-10)
DX: D17.24 Benign lipomatous neoplasm of skin and subcutaneous tissue of left leg (principal); E78.5 Hyperlipidemia, unspecified; F32.A Depression, unspecified; E11.9 Type 2 diabetes mellitus without complications; I10 Essential (primary) hypertension; Z96.652 Presence of left artificial knee joint; Z90.49 Acquired absence of other specified parts of digestive tract; Z79.899 Other long term (current) drug therapy
CPT/HCPCS: 27337; 82962; J0171; J3010; 36416; 88304; J1100; J1170; J1885; J2405; J2704; J3490; S0020

== ENCOUNTER 2024-03-02 06:35 | Day surgery (SDC) | payer OTHER ==
[2024-03-01 13:18] VITALS: BMI 33.7
[2024-03-02] MEDS ORDERED: cefTRIAXone (ROCEPHIN) 2 GM VIAL ONE (08:40)
[2024-03-02] MEDS ORDERED: Sodium Chloride 0.9% 100 ML ONE (08:40)
[2024-03-02] MEDS ORDERED: fentaNYL PF 100 MCG/2 ML SYRINGE ONE (09:14)
[2024-03-02] MEDS ORDERED: PROPOFOL 20 ML ONE ×2 (09:18→09:46)
[2024-03-02] MEDS ORDERED: LevoFLOXacin D5W 500 mg (100 mL) BAG ONE (09:26)
[2024-03-02] MEDS ORDERED: Tamsulosin HCl 0.4 MG CAP ONE (10:17)
[2024-03-02] MEDS ORDERED: Phenazopyridine HCl 100 MG TAB ONE (10:17)
== END 2024-03-02 12:15 | disposition home or self-care (01) ==
LOC: SDC 06:35
PROVIDERS: ATTEND Urology
PROC: 0V903ZX Drainage of Prostate, Percutaneous Approach, Diagnostic (ICD-10-PCS; principal; 2024-03-02)
DX: N40.1 Benign prostatic hyperplasia with lower urinary tract symptoms (principal); R35.1 Nocturia; R97.20 Elevated prostate specific antigen [PSA]; N28.1 Cyst of kidney, acquired; N20.0 Calculus of kidney; I10 Essential (primary) hypertension; E78.00 Pure hypercholesterolemia, unspecified; E11.9 Type 2 diabetes mellitus without complications; F32.A Depression, unspecified; Z90.49 Acquired absence of other specified parts of digestive tract; Z79.899 Other long term (current) drug therapy; Z96.652 Presence of left artificial knee joint; Z80.42 Family history of malignant neoplasm of prostate
CPT/HCPCS: 55700; C1747; J0696; J1956; J2704; J3490; 88341; 88342; G0416